=== PATIENT | male | born 1970 | race African-American/Black ===

== ENCOUNTER 2017-10-18 12:26 | Inpatient (IN) | payer OTHER ==
[2017-10-18 15:07] VITALS: BMI 25.1
--- NOTE | 2017-10-18 15:36 | HP ---
CIWA Score - CIWA Score Nausea/Vomitin-Mild Nausea/No Vomiting Muscle Tremors: 4-Moderate,w/Arms Extend Anxiety: 4-Mod. Anxious/Guarded Agitation: 4-Moderately Restless Paroxysmal Sweats: 1-Minimal Palms Moist Orientation: 1-Uncertain about Date Tacttile Disturbances: 1-Very Mild Itch/Numbness Auditory Disturbances: 0-None Visual Disturbances: 0-None Headache: 1-Very Mild CIWA-Ar Total Score: 17 Admission ROS S - HPI Chief Complaint: alcohol withdrawal sx Allergies/Adverse Reactions: Allergies Allergy/AdvReac Type Severity Reaction Status Date / Time No Known Allergies Allergy Verified 10/18/17 15:37 History of Present Illness: 47 years old male with long history of alcohol nicotine dependence has hypertension and depression is admitted to detox Exam Limitations: No Limitations - Ebola screening Have you traveled outside of the country in the last 21 days: No Have you had contact with anyone from an Ebola affected area: No Have you been sick,other than usual withdrawal symptoms: No Do you have a fever: No - Review of Systems Constitutional: Chills, Loss of Appetite, Changes in sleep, Unintentional Wgt. Loss, Unexplained wgt Loss EENT: reports: No Symptoms Reported Respiratory: reports: No Symptoms reported Cardiac: reports: No Symptoms Reported GI: reports: Nausea, Poor Appetite, Poor Fluid Intake, Abdominal cramping : reports: No Symptoms Reported Musculoskeletal: reports: Muscle Pain (sprain right ankle when play ball ambulate with cane) Integumentary: reports: No Symptoms Reported Neuro: reports: Tremors Endocrine: reports: No Symptoms Reported Hematology: reports: No Symptoms Reported Psychiatric: reports: Judgement Intact, Anxious, Depressed Other Systems: Reviewed and Negative Patient History - Patient Medical History Hx Anemia: No Hx Asthma: No Hx Chronic Obstructive Pulmonary Disease (COPD): No Hx Cancer: No Hx Cardiac Disorders: No Hx Congestive Heart Failure: No Hx Hypertension: Yes Hx Hypercholesterolemia: No Hx Pacemaker: No HX Cerebrovascular Accident: No Hx Seizures: No Hx Dementia: No Hx Diabetes: No Hx Gastrointestinal Disorders: No Hx Liver Disease: No Hx Genitourinary Disorders: No Hx Sexually Transmitted Disorders: No Hx Renal Disease (ESRD): No Hx Thyroid Disease: No Hx Human Immunodeficiency Virus (HIV): No Hx Hepatitis C: No Hx Depression: Yes Hx Suicide Attempt: No Hx Bipolar Disorder: No Hx Schizophrenia: No - Patient Surgical History Past Surgical History: No Hx Neurologic Surgery: No Hx Cataract Extraction: No Hx Cardiac Surgery: No Hx Lung Surgery: No Hx Breast Surgery: No Hx Breast Biopsy: No Hx Abdominal Surgery: No Hx Appendectomy: No Hx Cholecystectomy: No Hx Genitourinary Surgery: No Hx Orthopedic Surgery: No - PPD History Previous Implant?: Yes Documented Results: Negative w/o proof Implanted On Prior [facility] Admission?: Yes Date: 10/18/17 PPD to be Administered?: Yes - Smoking Cessation Smoking history: Current every day smoker Have you smoked in the past 12 months: Yes Aproximately how many cigarettes per day: 10 Cigars Per Day: 0 Hx Chewing Tobacco Use: No Initiated information on smoking cessation: Yes 'Breaking Loose' booklet given: 10/18/17 - Substance & Tx. History Hx Alcohol Use: Yes Hx Substance Use: Yes Substance Use Type: Alcohol, Cocaine, Marijuana, Tranquilizers Hx Substance Use Treatment: Yes (07/2017 [facility] - Substances Abused Crack Route: Smoking Frequency: 1-2 times per week Amount used: $60 Age of first use: 12 Date of Last Use: 10/16/17 Alcohol-vodka Route: Oral Frequency: Daily Amount used: 2 fifths Age of first use: 15 Date of Last Use: 10/17/17 Family Disease History - Family Disease History Family Disease History: [place]: Mother (), Other: Father, Mother, Sister Admission Physical Exam BHS - Vital Signs Vital Signs: Vital Signs - 24 hr 10/18/17 14:59 Temperature 97.8 F Pulse Rate 87 Respiratory 18 Rate Blood Pressure 155/88 - Physical General Appearance: Yes: Appropriately Dressed, Mild Distress, Thin, Tremorous, Irritable, Sweating, Anxious HEENTM: Yes: Hearing grossly Normal, Normocephalic, Normal Voice Respiratory: Yes: Chest Non-Tender, Lungs Clear, Normal Breath Sounds, No Respiratory Distress, No Accessory Muscle Use Neck: Yes: Supple, Trachea in good position Breast: Yes: Breasts Symetrical, No Discharge Cardiology: Yes: Regular Rhythm, Regular Rate, S1, S2 Abdominal: Yes: Normal Bowel Sounds, Non Tender, Flat Genitourinary: Yes: Within Normal Limits Back: Yes: Normal Inspection Musculoskeletal: Yes: Gait Steady (cane), Muscle Pain (right ankle) Extremities: Yes: Normal Inspection, Non-Tender, Tremors Neurological: Yes: Alert, Normal Response, Depressed Affect Integumentary: Yes: Warm Lymphatic: Yes: Within Normal Limits - Diagnostic (1) Alcohol dependence with uncomplicated withdrawal Current Visit: Yes Status: Acute (2) Hypertension Current Visit: Yes Status: Chronic Qualifiers: Hypertension type: essential hypertension Qualified Code(s): I10 - Essential (primary) hypertension (3) Use of cane as ambulatory aid Current Visit: Yes Status: Chronic Comment: right ankle sprain when play ball ambulate with cane as percaution mild pain on right ankle Cleared for Admission [facility] - Detox or Rehab [facility] Level of Care: Medically Managed Detox Regimen/Protocol: Librium [facility] Breath Alcohol Content Breath Alcohol Content: 0.241 Urine Drug Screen - Control Is Test Valid: Yes - Results Drug Screen Negative: No Urine Drug Screen Results: THC-Marijuana, CELINE-Cocaine, BZO-Benzodiazepines
[2017-10-18] MEDS ORDERED: IBUPROFEN 400 MG TABLET (FP) PO PRN (15:39)
[2017-10-18] MEDS ORDERED: LOPERAMIDE HCL 2 MG CAPSULE PO PRN (15:39)
[2017-10-18] MEDS ORDERED: MAGNESIUM HYDROX 2400MG/30ML ORAL SUSPENSION 30 ML CUP PO PRN (15:39)
[2017-10-18] MEDS ORDERED: MENTHOL/PHENOL 1 EACH UD MM PRN (15:39)
[2017-10-18] MEDS ORDERED: ACETAMINOPHEN 325 MG TABLET (FP) PO PRN (15:39)
[2017-10-18] MEDS ORDERED: guaiFENesin/D-METHORPHAN HB 10 ML UNIT-DOSE CUPS PO PRN (15:39)
[2017-10-18] MEDS ORDERED: chlordiazePOXIDE HCL 25 MG CAPSULE PO PRN (15:39)
[2017-10-18] MEDS ORDERED: MAGNESIUM CITRATE 300 ML BOTTLE PO PRN (15:39)
[2017-10-18] MEDS ORDERED: MAG HYDROX/AL HYDROX/SIMETH 30 ML UNIT-DOSE CUP PO PRN (15:39)
[2017-10-18] MEDS ORDERED: NICOTINE POLACRILEX 2 MG GUM BC PRN (15:39)
[2017-10-18] MEDS ORDERED: P-EPHED 60MG/TRIPROLIDI 2.5MG TABLET PO PRN (15:39)
[2017-10-18] MEDS ORDERED: amLODIPine BESYLATE 10 MG TABLET (FP) PO SCH (17:00)
[2017-10-18] MEDS ORDERED: NICOTINE 14 MG/24 HOURS TOPICAL PATCH TD SCH (17:00)
[2017-10-18] MEDS: chlordiazePOXIDE HCL 25 MG CAPSULE PO SCH ×2 (17:58→22:15)
[2017-10-18 21:59] VITALS: BP 147/96; PULSE 78; TEMP 97.8
[2017-10-18] MEDS ORDERED: THIAMINE HCL 100 MG TABLET (FP) PO SCH (22:00)
[2017-10-18] MEDS ORDERED: MELATONIN 5 MG TABLETS PO PRN (22:00)
[2017-10-19 02:34] LABS: URINE APPEARANCE CLEAR; URINE BILIRUBIN NEGATIVE (<2.0 mg/dL); URINE COLOR LTYELLOW; URINE GLUCOSE (UA) NEGATIVE (NEGATIVE); URINE KETONE NEGATIVE (NEGATIVE); URINE LEUK ESTERASE NEGATIVE (NEGATIVE); URINE NITRITE NEGATIVE (NEGATIVE); URINE PROTEIN NEGATIVE (NEGATIVE); URINE UROBILINOGEN NEGATIVE mg/dL (0.2-1.0)
[2017-10-19] MEDS: chlordiazePOXIDE HCL 25 MG CAPSULE PO SCH (05:58)
--- NOTE | 2017-10-19 07:34 | DS ---
S Detox Discharge Summary Admission Date: 10/18/17 Discharge Date: 10/19/17 - History Present History: Alcohol Dependence Pertinent Past History: HTN AMBULATES WITH CANE - Physical Exam Results Vital Signs: Vital Signs Temperature 97.8 F 10/18/17 21:58 Pulse Rate 78 10/18/17 21:58 Respiratory Rate 16 10/19/17 03:30 Blood Pressure 147/96 10/18/17 21:58 O2 Sat by Pulse Oximetry (%) Pertinent Admission Physical Exam Findings: WITHDRAWAL SX'S - Treatment Hospital Course: Discharged Condition Good - Medication Discharge Medications: Ambulatory Orders Unobtainable 10/18/17 - AMA Did Patient Leave Against Medical Advice: Yes
--- NOTE | 2017-10-19 07:35 | PN ---
S Progress Note Note: SIGNED OUT AMA FOR PERSONAL REASONS. WOULD NOT ELABORATE. D/W CLIENT ABOUT RISK IN Aborting TXMENT TO INCLUDE OVERDOES AND . CLIENT VERBALIZED UNDERSTANDING. REFUSED MORNING VS. LEFT A/O X3 NAD
[2017-10-19] MEDS ORDERED: PRENATAL VITAMINS W/ FOLIC ACID TABLET (FP) PO SCH (10:00)
--- NOTE | 2017-10-19 10:21 | EKG ---
Test Reason : Blood Pressure : / mmHG Vent. Rate : 087 BPM Atrial Rate : 087 BPM P-R Int : 132 ms QRS Dur : 096 ms QT Int : 404 ms P-R-T Axes : 062 053 044 degrees QTc Int : 486 ms NORMAL SINUS RHYTHM VOLTAGE CRITERIA FOR LEFT VENTRICULAR HYPERTROPHY PROLONGED QT NON-SPECIFIC INTRA-VENTRICULAR CONDUCTION DELAY ABNORMAL ECG WHEN COMPARED WITH ECG OF 02-AUG-2017 15:54, NO SIGNIFICANT CHANGE WAS FOUND Confirmed by DOTTIE GARBER MD ([id number]) on 10/19/2017 10:21:32 AM Referred By: Russell MELTON Confirmed By:DOTTIE GARBER MD
[2017-10-19] MEDS ORDERED: chlordiazePOXIDE HCL 25 MG CAPSULE PO SCH (17:00)
[2017-10-20] MEDS ORDERED: chlordiazePOXIDE 5 MG CAPSULE PO SCH (17:00)
[2017-10-21] MEDS ORDERED: chlordiazePOXIDE HCL 10 MG CAPSULE PO SCH (17:00)
== END 2017-10-19 06:20 | disposition left against medical advice (07) | DRG 770 ==
LOC: YASAS 12:26 → Y3N 16:35
PROVIDERS: ADMIT Internal Medicine; ATTEND Internal Medicine
PROC: HZ2ZZZZ Detoxification Services for Substance Abuse Treatment (ICD-10-PCS; principal; 2017-10-18)
DX: F10.230 Alcohol dependence with withdrawal, uncomplicated (principal); F17.210 Nicotine dependence, cigarettes, uncomplicated; F32.9 Major depressive disorder, single episode, unspecified; I10 Essential (primary) hypertension; M25.571 Pain in right ankle and joints of right foot; R26.89 Other abnormalities of gait and mobility; Z99.89 Dependence on other enabling machines and devices
CPT/HCPCS: 81003; 93005; 93010

== ENCOUNTER 2022-03-05 12:06 | Inpatient (IN) | payer OTHER ==
[2022-03-05 13:14] VITALS: BMI 23.6
[2022-03-05] MEDS ORDERED: MAG HYDROX/AL HYDROX/SIMETH 30 ML UNIT-DOSE CUP PO PRN (17:28)
[2022-03-05] MEDS ORDERED: MAGNESIUM HYDROX 2400MG/30ML ORAL SUSPENSION 30 ML CUP PO PRN (17:28)
[2022-03-05] MEDS ORDERED: BENZOCAINE/MENTHOL (CHLORASEPTIC ) LOZENGE MM PRN (17:28)
[2022-03-05] MEDS ORDERED: IBUPROFEN 600 MG TABLET (FP) PO PRN (17:28)
[2022-03-05] MEDS ORDERED: ONDANSETRON *ODT* 4 MG TABLET SL PRN (17:28)
[2022-03-05] MEDS ORDERED: ACETAMINOPHEN 325 MG TABLET (FP) PO PRN ×2 (17:28)
[2022-03-05] MEDS ORDERED: NICOTINE 10 MG CARTRIDGE (INHALER) IH PRN (17:28)
[2022-03-05] MEDS ORDERED: DICYCLOMINE HCL 10 MG CAPSULE PO PRN (17:28)
[2022-03-05] MEDS ORDERED: LOPERAMIDE HCL 2 MG CAPSULE PO PRN (17:28)
[2022-03-05] MEDS ORDERED: hydrOXYzine PAMOATE 25 MG CAPSULE (FP) PO PRN (17:28)
[2022-03-05] MEDS ORDERED: BISMUTH SUBSALICYLATE 524 MG/30 ML PO PRN (17:28)
[2022-03-05] MEDS ORDERED: METHOCARBAMOL 500 MG TABLET PO PRN (17:28)
[2022-03-05] MEDS ORDERED: IBUPROFEN 400 MG TABLET (FP) PO PRN (17:28)
[2022-03-05] MEDS ORDERED: MAGNESIUM CITRATE 300 ML BOTTLE PO PRN (17:28)
[2022-03-05] MEDS ORDERED: THIAMINE HCL 100 MG TABLET (FP) PO SCH (22:00)
[2022-03-05] MEDS ORDERED: MELATONIN 5 MG TABLETS PO SCH (22:00)
[2022-03-06 09:24] VITALS: RESP 18
[2022-03-06] MEDS ORDERED: PRENATAL VITAMINS W/ FOLIC ACID TABLET (FP) PO SCH (10:00)
[2022-03-06] MEDS ORDERED: diazePAM 5 MG TABLET PO PRN (10:33)
[2022-03-06] MEDS ORDERED: LISINOPRIL 5 MG TABLET PO SCH (11:00)
[2022-03-06] MEDS ORDERED: diazePAM 5 MG TABLET PO SCH (11:00)
[2022-03-06 13:07] VITALS: BP 143/90; PULSE 79; TEMP 97.1
[2022-03-06 13:24] LABS: CALCIUM 9.5 mg/dL (8.5-10.1)
[2022-03-06 13:25] LABS: ALBUMIN 3.7 g/dl (3.4-5.0); BLOOD UREA NITROGEN 26.8 mg/dL (7-18)
[2022-03-06 13:28] LABS: CREATININE 1.4 mg/dL (0.55-1.3)
[2022-03-06 13:30] LABS: BILIRUBIN,TOTAL 0.4 mg/dL (0.2-1); TOT PROT 6.6 g/dl (6.4-8.2)
[2022-03-06 13:49] LABS: HEMATOCRIT 36.3 % (35.4-49); HEMOGLOBIN 11.9 GM/dL (11.7-16.9); MCH 33.7 pg (25.7-33.7); MCHC 32.7 g/dl (32.0-35.9); MEAN CELL VOLUME 103.1 fl (80-96); MEAN PLT VOLUME 9.5 fl (7.5-11.1); PLATELET COUNT 222 10^3/uL (134-434); RBC 3.52 M/mm3 (4.00-5.60); RDW 14.9 % (11.9-15.9); WHITE BLOOD COUNT 5.1 K/mm3 (4.0-10.0)
[2022-03-06 14:23] LABS: HIV INTERPRETATION NEGATIVE (NEGATIVE)
[2022-03-07] MEDS ORDERED: diazePAM 5 MG TABLET PO SCH (06:00)
[2022-03-08] MEDS ORDERED: diazePAM 5 MG TABLET PO SCH (06:00)
[2022-03-09] MEDS ORDERED: diazePAM 5 MG TABLET PO ONE (06:00)
== END 2022-03-06 17:32 | disposition left against medical advice (07) | DRG 770 ==
LOC: YASAS 12:06 → Y6N 18:02
PROVIDERS: ADMIT Allergy & Immunology; ATTEND Surgery
PROC: HZ2ZZZZ Detoxification Services for Substance Abuse Treatment (ICD-10-PCS; principal; 2022-03-05)
DX: F10.230 Alcohol dependence with withdrawal, uncomplicated (principal); F12.20 Cannabis dependence, uncomplicated; F17.210 Nicotine dependence, cigarettes, uncomplicated; F41.9 Anxiety disorder, unspecified; F32.A Depression, unspecified; I10 Essential (primary) hypertension; E78.5 Hyperlipidemia, unspecified
CPT/HCPCS: 36415; 80053; 85027; 86780; 87389; 87811; C9803-CS; U0003; U0005

== ENCOUNTER 2022-09-22 18:59 | Inpatient (IN) | payer BC ==
[2022-09-22 19:37] VITALS: BMI 23.6
[2022-09-22] MEDS ORDERED: MAG HYDROX/AL HYDROX/SIMETH 30 ML UNIT-DOSE CUP PO PRN (21:09)
[2022-09-22] MEDS ORDERED: NALOXONE HCL (KLOXXADO) 8 MG SPRAY NS PRN (21:09)
[2022-09-22] MEDS ORDERED: NALOXONE HCL 0.4 MG/ML VIAL IM PRN (21:09)
[2022-09-22] MEDS ORDERED: LOPERAMIDE HCL 2 MG CAPSULE PO PRN (21:09)
[2022-09-22] MEDS ORDERED: ONDANSETRON *ODT* 4 MG TABLET SL PRN (21:09)
[2022-09-22] MEDS ORDERED: BISMUTH SUBSALICYLATE 524 MG/30 ML PO PRN (21:09)
[2022-09-22] MEDS ORDERED: BENZONATATE 200 MG CAPSULE PO PRN (21:09)
[2022-09-22] MEDS ORDERED: ACETAMINOPHEN 325 MG TABLET (FP) PO PRN (21:09)
[2022-09-22] MEDS ORDERED: guaiFENesin 600 MG TABLET.ER (FP) PO PRN (21:09)
[2022-09-22] MEDS ORDERED: IBUPROFEN 600 MG TABLET (FP) PO PRN (21:09)
[2022-09-22] MEDS ORDERED: DICYCLOMINE HCL 10 MG CAPSULE PO PRN (21:09)
[2022-09-22] MEDS ORDERED: POLYETHYLENE GLYCOL (HEALTHYLAX) 3350 17 GM PACKET PO PRN (21:09)
[2022-09-22] MEDS ORDERED: IBUPROFEN 400 MG TABLET (FP) PO PRN (21:09)
[2022-09-22] MEDS ORDERED: BENZOCAINE/MENTHOL (CHLORASEPTIC ) LOZENGE MM PRN (21:09)
[2022-09-22] MEDS ORDERED: NICOTINE POLACRILEX 2 MG GUM BUC PRN (21:09)
[2022-09-22] MEDS ORDERED: MAGNESIUM HYDROX 2400MG/30ML ORAL SUSPENSION 30 ML CUP PO PRN (21:09)
[2022-09-22] MEDS ORDERED: cloNIDine HCL 0.1 MG TABLET PO ONE (21:19)
[2022-09-22] MEDS ORDERED: cloNIDine HCL 0.1 MG TABLET ONE (21:38)
[2022-09-22] MEDS: MELATONIN 5 MG TABLETS PO SCH (23:20)
[2022-09-22] MEDS: THIAMINE HCL 100 MG TABLET (FP) PO SCH (23:20)
[2022-09-23] MEDS: PRENATAL VITAMINS W/ FOLIC ACID TABLET (FP) PO SCH (10:30)
[2022-09-23] MEDS: NICOTINE 14 MG/24 HOURS TOPICAL PATCH TD SCH (10:30)
[2022-09-23] MEDS: diazePAM 5 MG TABLET PO SCH ×3 (10:40→22:51)
[2022-09-23 10:51] LABS: POTASSIUM 3.1 mmol/L (3.5-5.1)
[2022-09-23 10:56] LABS: BLOOD UREA NITROGEN 19.1 mg/dL (7-18); CALCIUM 8.4 mg/dL (8.5-10.1)
[2022-09-23 10:57] LABS: ALBUMIN 3.4 g/dl (3.4-5.0)
[2022-09-23 10:59] LABS: CREATININE 1.5 mg/dL (0.55-1.3)
[2022-09-23 11:00] LABS: HEMATOCRIT 32.7 % (35.4-49); HEMOGLOBIN 11.4 GM/dL (11.7-16.9); MCH 33.7 pg (25.7-33.7); MCHC 34.9 g/dl (32.0-35.9); MEAN CELL VOLUME 96.6 fl (80-96); MEAN PLT VOLUME 9.5 fl (7.5-11.1); PLATELET COUNT 142 10^3/uL (134-434); RBC 3.39 M/mm3 (4.00-5.60); RDW 15.2 % (11.9-15.9); WHITE BLOOD COUNT 4.6 K/mm3 (4.0-10.0)
[2022-09-23 11:01] LABS: BILIRUBIN,TOTAL 1.6 mg/dL (0.2-1); TOT PROT 6.4 g/dl (6.4-8.2)
[2022-09-23] MEDS: diazePAM 5 MG TABLET PO PRN (15:24)
[2022-09-23] MEDS: MELATONIN 5 MG TABLETS PO SCH (22:50)
[2022-09-23] MEDS: METHOCARBAMOL 500 MG TABLET PO PRN (22:50)
[2022-09-23] MEDS: THIAMINE HCL 100 MG TABLET (FP) PO SCH (22:50)
[2022-09-24] MEDS: diazePAM 5 MG TABLET PO SCH ×4 (05:43→22:00)
[2022-09-24] MEDS: diazePAM 5 MG TABLET PO PRN ×2 (07:59→13:40)
[2022-09-24] MEDS: NICOTINE 14 MG/24 HOURS TOPICAL PATCH TD SCH (10:43)
[2022-09-24] MEDS: PRENATAL VITAMINS W/ FOLIC ACID TABLET (FP) PO SCH (10:43)
[2022-09-24] MEDS: MELATONIN 5 MG TABLETS PO SCH (22:00)
[2022-09-24] MEDS: METHOCARBAMOL 500 MG TABLET PO PRN (22:00)
[2022-09-24] MEDS: THIAMINE HCL 100 MG TABLET (FP) PO SCH (22:00)
[2022-09-25] MEDS: diazePAM 5 MG TABLET PO SCH ×3 (05:44→21:59)
[2022-09-25] MEDS ORDERED: POTASSIUM CHLORIDE ORAL LIQUID 20 MEQ/15 ML PO SCH (10:00)
[2022-09-25] MEDS ORDERED: LISINOPRIL 5 MG TABLET PO SCH (10:00)
[2022-09-25] MEDS: diazePAM 5 MG TABLET PO PRN ×2 (10:19→17:29)
[2022-09-25] MEDS: POTASSIUM CHLORIDE ORAL LIQUID 20 MEQ/15 ML PO SCH ×2 (10:20→21:59)
[2022-09-25] MEDS: NICOTINE 14 MG/24 HOURS TOPICAL PATCH TD SCH (10:21)
[2022-09-25] MEDS: PRENATAL VITAMINS W/ FOLIC ACID TABLET (FP) PO SCH (10:21)
[2022-09-25 11:55] LABS: POTASSIUM 3.6 mmol/L (3.5-5.1)
[2022-09-25 12:02] LABS: CALCIUM 8.8 mg/dL (8.5-10.1)
[2022-09-25 12:03] LABS: BLOOD UREA NITROGEN 17.2 mg/dL (7-18)
[2022-09-25 12:06] LABS: CREATININE 1.4 mg/dL (0.55-1.3)
[2022-09-25 14:33] VITALS: RESP 16
[2022-09-25] MEDS: THIAMINE HCL 100 MG TABLET (FP) PO SCH (21:57)
[2022-09-25] MEDS: MELATONIN 5 MG TABLETS PO SCH (21:57)
[2022-09-25] MEDS: METHOCARBAMOL 500 MG TABLET PO PRN (21:57)
[2022-09-26 05:54] VITALS: TEMP 97.8
[2022-09-26] MEDS ORDERED: diazePAM 5 MG TABLET PO SCH (06:00)
[2022-09-26 06:33] VITALS: BP 140/83; PULSE 82
[2022-09-27] MEDS ORDERED: diazePAM 5 MG TABLET PO ONE (06:00)
== END 2022-09-26 08:55 | disposition home or self-care (01) | DRG 775 ==
LOC: YASAS 18:59 → Y3N 21:10 → UNDOADMIN 22:46 → Y3N 22:46
PROVIDERS: ADMIT Allergy & Immunology; ATTEND Surgery
PROC: HZ2ZZZZ Detoxification Services for Substance Abuse Treatment (ICD-10-PCS; principal; 2022-09-22)
DX: F10.230 Alcohol dependence with withdrawal, uncomplicated (principal); F17.210 Nicotine dependence, cigarettes, uncomplicated; E87.6 Hypokalemia; E78.5 Hyperlipidemia, unspecified; I10 Essential (primary) hypertension; R74.01 Elevation of levels of liver transaminase levels; R74.8 Abnormal levels of other serum enzymes; R79.89 Other specified abnormal findings of blood chemistry
CPT/HCPCS: 36415; 80048; 80053; 85027; 86780; 87811; C9803-CS; U0003; U0005

== ENCOUNTER 2024-07-09 21:10 | Inpatient (IN) | payer OTHER ==
[2024-07-09 21:34] VITALS: BMI 23.0
[2024-07-09] MEDS ORDERED: guaiFENesin 600 MG TABLET.ER (FP) PO PRN (22:00)
[2024-07-09] MEDS ORDERED: IBUPROFEN 400 MG TABLET (FP) PO PRN (22:00)
[2024-07-09] MEDS ORDERED: LOPERAMIDE HCL 2 MG CAPSULE PO PRN (22:00)
[2024-07-09] MEDS ORDERED: MAGNESIUM HYDROX 2400MG/30ML ORAL SUSPENSION 30 ML CUP PO PRN (22:00)
[2024-07-09] MEDS ORDERED: MAG HYDROX/AL HYDROX/SIMETH 30 ML UNIT-DOSE CUP PO PRN (22:00)
[2024-07-09] MEDS ORDERED: DICYCLOMINE HCL 10 MG CAPSULE PO PRN (22:01)
[2024-07-09] MEDS ORDERED: NICOTINE POLACRILEX 2 MG LOZENGE BC PRN (22:01)
[2024-07-09] MEDS ORDERED: BISMUTH SUBSALICYLATE 524 MG/30 ML PO PRN (22:01)
[2024-07-09] MEDS ORDERED: NALOXONE (NARCAN) HCL 4 MG/0.1 ML SPRAY NS PRN (22:01)
[2024-07-09] MEDS ORDERED: LORazepam 1 MG TABLET PO PRN (22:01)
[2024-07-09] MEDS ORDERED: ONDANSETRON *ODT* 4 MG TABLET SL PRN (22:01)
[2024-07-09] MEDS ORDERED: POLYETHYLENE GLYCOL (HEALTHYLAX) 3350 17 GM PACKET PO PRN (22:01)
[2024-07-09] MEDS ORDERED: BENZONATATE 200 MG CAPSULE PO PRN (22:01)
[2024-07-09] MEDS ORDERED: BENZOCAINE/MENTHOL (CHLORASEPTIC ) LOZENGE MM PRN (22:01)
[2024-07-09] MEDS ORDERED: ACETAMINOPHEN 325 MG TABLET (FP) PO PRN (22:01)
[2024-07-09] MEDS ORDERED: LORazepam 2 MG TABLET ONE (22:32)
[2024-07-09] MEDS: LORazepam 2 MG TABLET PO SCH (22:35)
[2024-07-10] MEDS: METHOCARBAMOL 500 MG TABLET PO PRN (10:41)
[2024-07-10] MEDS: NICOTINE 14 MG/24 HOURS TOPICAL PATCH TD SCH (10:41)
[2024-07-10] MEDS: PRENATAL VITAMINS W/ FOLIC ACID TABLET (FP) PO SCH (10:41)
[2024-07-10] MEDS: LOSARTAN POTASSIUM 25 MG TABLET PO SCH (10:41)
[2024-07-10 17:21] LABS: HEMATOCRIT 35.6 % (35.4-49); MCH 32.2 pg (25.7-33.7); MCHC 33.7 g/dl (32.0-35.9); MEAN CELL VOLUME 95.8 fl (80-96); MEAN PLT VOLUME 8.8 fl (7.5-11.1); PLATELET COUNT 232 10^3/uL (134-434); RBC 3.71 M/mm3 (4.00-5.60); RDW 17.8 % (11.9-15.9); WHITE BLOOD COUNT 3.4 K/mm3 (4.0-10.0)
[2024-07-10 17:32] LABS: POTASSIUM 3.6 mmol/L (3.5-5.1)
[2024-07-10 17:35] LABS: ALBUMIN 3.2 g/dl (3.4-5.0); BLOOD UREA NITROGEN 33.5 mg/dL (7-18); CALCIUM 7.8 mg/dL (8.5-10.1)
[2024-07-10 17:38] LABS: CREATININE 1.4 mg/dL (0.55-1.3)
[2024-07-10 17:40] LABS: BILIRUBIN,TOTAL 0.3 mg/dL (0.2-1); TOT PROT 6.8 g/dl (6.4-8.2)
[2024-07-10 18:18] LABS: HIV INTERPRETATION NEGATIVE (NEGATIVE)
[2024-07-10] MEDS: MELATONIN 5 MG TABLETS PO SCH (22:09)
[2024-07-10] MEDS: THIAMINE 100 MG TABLET PO SCH (22:09)
[2024-07-10] MEDS: hydrOXYzine PAMOATE 25 MG CAPSULE (FP) PO PRN (22:09)
[2024-07-11] MEDS: LORazepam 1 MG TABLET PO SCH (05:59)
[2024-07-12] MEDS ORDERED: LORazepam 0.5 MG TABLET PO PRN
[2024-07-12] MEDS: LORazepam 0.5 MG TABLET PO SCH (06:18)
[2024-07-12] MEDS: IBUPROFEN 600 MG TABLET (FP) PO PRN (17:35)
[2024-07-13] MEDS: LORazepam 0.5 MG TABLET PO ONE (05:30)
[2024-07-13 09:03] VITALS: BP 158/110; PULSE 76; RESP 16; TEMP 98.3
== END 2024-07-13 08:55 | disposition home or self-care (01) | DRG 775 ==
LOC: YASAS 21:10 → Y6N 22:08
PROVIDERS: ADMIT Allergy & Immunology; ATTEND Allergy & Immunology
PROC: HZ2ZZZZ Detoxification Services for Substance Abuse Treatment (ICD-10-PCS; principal; 2024-07-09)
DX: F10.230 Alcohol dependence with withdrawal, uncomplicated (principal); F12.20 Cannabis dependence, uncomplicated; F19.24 Other psychoactive substance dependence with psychoactive substance-induced mood disorder; F17.210 Nicotine dependence, cigarettes, uncomplicated; M54.50 Low back pain, unspecified; G89.29 Other chronic pain; Z99.89 Dependence on other enabling machines and devices
CPT/HCPCS: 36415; 80053; 80305; 80307; 85027; 86780; 86803; 87389; 93005; 93010